=== PATIENT | male | born 1965 | race African-American/Black ===

== ENCOUNTER → 2016-10-20 | Outpatient (CLI) | payer OTHER ==
[~2016-10-20] MED LIST: NS 100 ML IV 100 ML IV ONE
--- NOTE | 2016-10-20 13:05 | CT ---
HISTORY: Gross hematuria Study: CT abdomen and pelvis with and without contrast Comparison: 03/23/2016 Technique: Multiple axial images of the abdomen and pelvis were obtained with and without IV contrast. Oral co ntrast was not administered. Dose reduction techniques including Automated Exposure Control (AEC) an d adjustment of mA and kV were utilized. Findings: The visualized portions of the lung bases are unremarkable. The liver, spleen, pancreas, kidneys, a nd adrenal glands are unremarkable in their CT appearance. The gallbladder is normal. No renal calcu li identified. No evidence of solid renal mass. The ureters are normal without evidence of filling d efect. The urinary bladder has smooth price. No stones or mass identified within the urinary bladder . No free intraperitoneal air. No evidence of intestinal obstruction or inflammation. The appendix is grossly normal. No free fluid. The soft tissues and osseous structures are unremarkable. The vascular structures are unremarkable. No pathologically enlarged lymph nodes are identified. The prostate gland appears normal in size. IMPRESSION: 1. Negative CT of the abdomen and pelvis. No findings to explain the history of hematuria. Reported By:
== END ==
LOC: RAD 08:52
DX: R31.0 Gross hematuria (principal)
CPT/HCPCS: 74178; A4222